=== PATIENT | female | born 1995 | race African-American/Black ===

== ENCOUNTER 2024-08-31 10:29 | Emergency (ER) | payer OTHER, SELFPAY ==
[2024-08-31 11:52] LABS: #Basophils 0.02 10x3/uL (0.0-0.2); #Eosinophils 0.26 10x3/uL (0.0-0.5); #Monocytes 0.65 10x3/uL (0.0-1.1); #Neutrophils 2.52 10x3/uL (1.5-8.4); %Basophils 0.4 % (0.0-2.0); %Eosinophils 4.9 % (0.0-6.0); %Lymphocytes 35.2 % (18.0-47.0); %Monocytes 12.2 % (0.0-10.0); %Neutrophils 47.1 % (40.0-75.0); Hemoglobin 12.3 g/dL (12.0-15.5); Mean Corpuscular HGB CONC 32.4 g/dL (32.0-36.0); Mean Corpuscular Hemoglobin 28.3 pg (27.0-33.0); Mean Corpuscular Volume 87.6 fL (81.6-98.3); Mean Platelet Volume 10.8 fL (7.4-10.4); Platelet Count 205 10x3/uL (150-450); Red Blood Cell (RBC) Count 4.34 10x6/uL (3.90-5.03); White Blood Cell (WBC) Count 5.3 10x3/uL (3.5-10.5)
[2024-08-31 12:09] LABS: Anion Gap 12 mmol/L (10-20); BUN (Urea Nitrogen) 6 mg/dL (7.0-18.7); Calc. Creatinine Clearance 0 mL/min (70-130); Calcium 8.8 mg/dL (7.8-10.44); Carbon Dioxide 23 mmol/L (22-29); Chloride 107 mmol/L (98-107); Estimated GFR 106; Glucose 81 mg/dL (70-105); Potassium 3.8 mmol/L (3.5-5.1); Sodium 138 mmol/L (136-145)
== END 2024-08-31 15:00 | disposition home or self-care (01) ==
LOC: CSHERS 10:29
DX: O03.9 Complete or unspecified spontaneous abortion without complication (principal); Z55.6 Problems related to health literacy; Z75.3 Unavailability and inaccessibility of health-care facilities
CPT/HCPCS: 36415; 76856; 80048; 84702; 85025; 86900; 86901

== ENCOUNTER 2024-09-07 10:29 | Emergency (ER) | payer OTHER ==
[2024-09-07] MEDS ORDERED: Misoprostol 200 MCG TAB PO SCH (12:30)
== END 2024-09-07 12:43 | disposition home or self-care (01) ==
LOC: CSHERS 10:29
DX: O03.4 Incomplete spontaneous abortion without complication (principal)
CPT/HCPCS: 36415; 84702; 99284